=== PATIENT | male | born 1945 | race Caucasian/White ===

== ENCOUNTER → 2017-02-19 | Outpatient (CLI) | payer MEDICARE, BC | END | disposition disaster alternative care site (69) | LOC: LGSMG 12:40 | DX: R05 Cough (principal); R06.02 Shortness of breath ==

== ENCOUNTER → 2017-03-08 | Outpatient (CLI) | payer MEDICARE, BC | END | disposition disaster alternative care site (69) | LOC: GRAD 07:46 | DX: R05 Cough (principal); Z87.891 Personal history of nicotine dependence | CPT/HCPCS: G0297 ==